=== PATIENT | male | born 2000 | race African-American/Black ===

== ENCOUNTER 2021-05-04 15:31 | Inpatient (IN) | payer MEDICAID ==
[~2021-05-04] VITALS: Ht 195.6 cm; Wt 147.4 kg
[2021-05-04] MEDS ORDERED: IPRATROPIUM/ALBUTEROL 0.5-3(2.5)MG/3ML NEB HHN ONE (16:30)
[2021-05-04] MEDS ORDERED: SODIUM CHLORIDE 0.9% 1,000 ML IV ONE (16:45)
[2021-05-04] MEDS ORDERED: DEXAMETHASONE 4MG/ML 1ML VIAL IV ONE (16:45)
[2021-05-04 16:49] LABS: BASOPHILS % 0.4 % (0.0-2.0); HEMATOCRIT. 42.2 % (42.0-52.0); HEMOGLOBIN. 14.3 g/dL (14.0-18.0); LYMPHOCYTES % 18.2 % (20.0-50.0); MEAN CORPUSCULAR HEMOGLOBIN 30.1 pg (28.0-32.0); MEAN CORPUSCULAR VOLUME 88.6 fL (80.0-94.0); MEAN PLATELET VOLUME 8.4 fl (7.4-10.4); NEUTROPHILS % 74.4 % (40.0-76.0); PLATELET 139 x1000/uL (130-400); RED BLOOD CELL COUNT 4.76 mill/uL (4.7-6.1); RED CELL DISTRIBUTION WIDTH 13.7 % (11.6-14.6)
[2021-05-04 16:54] LABS: CHLORIDE 107 mEq/L (98-107)
[2021-05-04] MEDS ORDERED: AZITHROMYCIN 500 MG in DEXT 5% WATER 250 ML IV SCH (18:30)
[2021-05-04] MEDS ORDERED: CEFTRIAXONE 1 G PREMIX 50 ML IV ONE (18:30)
[2021-05-04] MEDS ORDERED: LORA10TA7 PO (23:39)
[2021-05-04] MEDS ORDERED: MONT10TA32 PO (23:39)
[2021-05-04 23:41] VITALS: BP 136/73
[2021-05-05] VITALS: BP 136/73
[2021-05-05] MEDS ORDERED: ALBUTEROL 6.7GM HFA INHALER ORI PRN (00:45)
[2021-05-05] MEDS ORDERED: ACETAMINOPHEN 325MG TABLET PO PRN (00:45)
[2021-05-05] MEDS: ENOXAPARIN 40MG/0.4ML SYR SUBCUT SCH ×3 (01:18→19:52)
[2021-05-05 04:00] VITALS: BP 130/83
[2021-05-05 06:53] LABS: BASOPHILS % 0.3 % (0.0-2.0); HEMATOCRIT. 42.3 % (42.0-52.0); HEMOGLOBIN. 14.1 g/dL (14.0-18.0); LYMPHOCYTES % 21.4 % (20.0-50.0); MEAN CORPUSCULAR HEMOGLOBIN 29.4 pg (28.0-32.0); MEAN CORPUSCULAR VOLUME 88.1 fL (80.0-94.0); MEAN PLATELET VOLUME 8.4 fl (7.4-10.4); MONOCYTES % 11.8 % (2.0-8.0); NEUTROPHILS % 66.5 % (40.0-76.0); PLATELET 162 x1000/uL (130-400); RED CELL DISTRIBUTION WIDTH 13.5 % (11.6-14.6)
[2021-05-05 07:01] LABS: CHLORIDE 108 mEq/L (98-107)
[2021-05-05 08:00] VITALS: BP 119/78
[2021-05-05] MEDS: DEXAMETHASONE 10 MG/ML VIAL IV SCH (09:51)
[2021-05-05 10:58] LABS: BG BASE EXCESS -1.3 mmol/L (-2.0-2.0); BG CARBOXYHEMOGLOBIN 0.3 % (0.5-1.5); BG DEOXYHEMOGLOBIN 5.6 % (0.0-5.0); BG FRACTION INSPIRED OXYGEN 21; BG HCO3 ACT 21.6 mmol/L (22.0-26.0); BG METHEMOGLOBIN 0.1 % (0.0-1.5); BG OXYGEN SATURATION 94.4 % (92.0-98.5); BG PCO2 31.7 mmHg (35.0-45.0); BG PH 7.451 (7.350-7.450); BG PO2 69.8 mmHg (75.0-100.0); BG SAMPLE SITE LEFT RADIAL; BG TOTAL HEMOGLOBIN 15.2 g/dL (12.0-18.0); BG VENT MODE ROOM AIR
[2021-05-05 12:00] VITALS: BP 126/78
[2021-05-05] MEDS ORDERED: CEFTRIAXONE 1 G PREMIX 50 ML IV SCH (15:15)
[2021-05-05] MEDS ORDERED: AZITHROMYCIN 500MG/250ML 250 ML IV ONE (15:15)
[2021-05-05 16:00] VITALS: BP 124/90
[2021-05-05] MEDS: AZITHROMYCIN 500MG in DEXTROSE 5% WATER 250ML IV SCH (16:38)
[2021-05-05] MEDS: CEFTRIAXONE 1,000 MG in DEXTROSE 5% WATER 50 ML IV SCH (18:26)
[2021-05-05 20:00] VITALS: BP 126/82
[2021-05-06] VITALS: BP 119/80
[2021-05-06 04:00] VITALS: BP 120/78
[2021-05-06 08:00] VITALS: BP 132/87
[2021-05-06] MEDS: ENOXAPARIN 40MG/0.4ML SYR SUBCUT SCH ×2 (09:10→20:32)
[2021-05-06] MEDS: DEXAMETHASONE 10 MG/ML VIAL IV SCH (09:11)
[2021-05-06 12:00] VITALS: BP 138/93
[2021-05-06 13:07] LABS: BASOPHILS % 0.1 % (0.0-2.0); HEMATOCRIT. 43.5 % (42.0-52.0); LYMPHOCYTES % 8.8 % (20.0-50.0); MEAN CORPUSCULAR HEMOGLOBIN 30.8 pg (28.0-32.0); MEAN CORPUSCULAR VOLUME 89.4 fL (80.0-94.0); MEAN PLATELET VOLUME 8.5 fl (7.4-10.4); MONOCYTES % 8.4 % (2.0-8.0); NEUTROPHILS % 82.7 % (40.0-76.0); PLATELET 197 x1000/uL (130-400); RED BLOOD CELL COUNT 4.87 mill/uL (4.7-6.1); RED CELL DISTRIBUTION WIDTH 13.8 % (11.6-14.6)
[2021-05-06 13:24] LABS: CREATINE KINASE MB FRACTION 5.8 ng/mL (0.5-3.6)
[2021-05-06 13:34] LABS: CREATINE KINASE 2646 IU/L (39-308)
[2021-05-06] MEDS ORDERED: ONDANSETRON HCL 4MG/2ML INJ IV PRN (15:00)
[2021-05-06] MEDS ORDERED: DIPHENHYDRAMINE 50MG/ML VIAL IV PRN (15:00)
[2021-05-06] MEDS ORDERED: HYDRALAZINE 20MG/ML VIAL IV PRN (15:00)
[2021-05-06] MEDS ORDERED: LORAZEPAM 2MG/ML CPJ IV PRN (15:00)
[2021-05-06] MEDS ORDERED: LACTULOSE 20G/30ML UDC PO PRN (15:00)
[2021-05-06] MEDS ORDERED: HYDROCODONE/ACETAMINOPHEN 5/325MG TABLET PO PRN (15:00)
[2021-05-06 16:00] VITALS: BP 133/80
[2021-05-06] MEDS: AZITHROMYCIN 500MG in DEXTROSE 5% WATER 250ML IV SCH (16:41)
[2021-05-06] MEDS: CEFTRIAXONE 1,000 MG in DEXTROSE 5% WATER 50 ML IV SCH (18:17)
[2021-05-06 20:00] VITALS: BP 128/83
[2021-05-06 20:27] LABS: CHLORIDE 107 mEq/L (98-107)
[2021-05-06 20:36] LABS: CREATINE KINASE MB FRACTION 5.5 ng/mL (0.5-3.6)
[2021-05-06] MEDS ORDERED: FAMOTIDINE 20MG TABLET PO SCH (21:00)
[2021-05-06 21:09] LABS: CREATINE KINASE 2058 IU/L (39-308)
[2021-05-07] VITALS: BP 118/80
[2021-05-07 04:00] VITALS: BP 128/79
[2021-05-07 08:00] VITALS: BP 114/71
[2021-05-07] MEDS: DEXAMETHASONE 10 MG/ML VIAL IV SCH (08:38)
[2021-05-07] MEDS: ENOXAPARIN 40MG/0.4ML SYR SUBCUT SCH (08:39)
[2021-05-07 12:00] VITALS: BP 142/95
[2021-05-07] MEDS ORDERED: APIX2.5T MT (14:42)
[2021-05-07] MEDS ORDERED: ALBU90AE INH (14:42)
[2021-05-07] MEDS ORDERED: FAMO-135 PO (14:42)
[2021-05-07] MEDS ORDERED: DEXA2TAB PO (14:42)
[2021-05-07] MEDS ORDERED: ENOXAPARIN 30MG/0.3ML SYR SUBCUT SCH ×2 (15:28→21:00)
[2021-05-07 15:54] VITALS: BP 136/93
[2021-05-07 16:00] VITALS: BP 136/93
[2021-05-07] MEDS ORDERED: AZITHROMYCIN 250 MG TABLET PO SCH (17:30)
== END 2021-05-07 18:25 | disposition home or self-care (01) | DRG 137 ==
LOC: ER 15:55 → EDBEDREQ 19:00 → ENRESERV 20:24 → 7WST 22:53
PROVIDERS: ADMIT Internal Medicine; ATTEND Internal Medicine
DX: U07.1 COVID-19 (principal); J96.01 Acute respiratory failure with hypoxia; J12.82 Pneumonia due to coronavirus disease 2019; D68.59 Other primary thrombophilia; J15.9 Unspecified bacterial pneumonia; J45.901 Unspecified asthma with (acute) exacerbation; E66.2 Morbid (severe) obesity with alveolar hypoventilation; M62.82 Rhabdomyolysis; R74.01 Elevation of levels of liver transaminase levels; E87.5 Hyperkalemia; R94.31 Abnormal electrocardiogram [ECG] [EKG]; E78.5 Hyperlipidemia, unspecified; Z82.49 Family history of ischemic heart disease and other diseases of the circulatory system; Z83.3 Family history of diabetes mellitus; Z79.899 Other long term (current) drug therapy; Z68.38 Body mass index [BMI] 38.0-38.9, adult
CPT/HCPCS: 36415; 36600; 71045; 80048; 80053; 80061; 82375; 82550; 82553; 82805; 83036; 83605; 83880; 84484; 85025; 85379; 93005; 93970; 94640; 99285; J0456; J0696; J1100; J1650; J7030; J7060; U0003; U0005